=== PATIENT | male | born 1980 | race Caucasian/White ===

== ENCOUNTER 2017-05-09 21:09 | Inpatient (IN) | payer MEDICAID ==
[2017-05-09] MEDS ORDERED: Vancomycin(*) 1,000 MG in NS 0.9% 250 ML* 250 ML IVPB ONE (23:03)
[2017-05-09] MEDS ORDERED: NS 0.9% 1000 ML* 2,000 ML IV ONE (23:04)
[2017-05-09] MEDS ORDERED: Acetaminophen TAB* 325 MG PO ONE (23:04)
[2017-05-09 23:15] LABS: ABS Basophils 0 10^3/ul (0-0.2); ABS Eosinophils 0 10^3/ul (0-0.6); ABS Lymphocytes 0.6 10^3/ul (1.0-4.8); ABS Monocytes 0.4 10^3/ul (0-0.8); ABS Neutrophils 6.3 10^3/ul (1.5-7.7); ABS Nucleated RBC 0 10^3/ul; Eosinophil % 0.1 % (0-6); Hematocrit 38 % (42-52); Hemoglobin 13.1 g/dl (14.0-18.0); Lymphocyte % 8.1 % (25-47); Mean Corpuscular HGB Conc 35 g/dl (31-36); Mean Corpuscular Hemoglobin 34 pg (27-31); Mean Corpuscular Volume 99 fL (80-94); Mean Platelet Volume 8 um3 (7.4-10.4); Nucleated Red Blood Cells % 0.2; Platelet Count 154 10^3/ul (150-450); Red Blood Count 3.85 10^6/ul (4.0-5.4); Red Cell Distribution Width 14 % (10.5-15); White Blood Count 7.4 10^3/ul (3.5-10.8)
[2017-05-09 23:26] LABS: EGFR Non-African American 84.5 (>60)
[2017-05-09 23:39] LABS: INR 1.18 (0.77-1.02)
[2017-05-10] MEDS ORDERED: Ondansetron INJ* 2 MG/ML VIAL IV PRN (02:35)
[2017-05-10] MEDS ORDERED: Acetaminophen ADULT LIQ* 650 MG/20.3 ML UDC PO PRN (02:35)
[2017-05-10] MEDS ORDERED: Vancomycin per Pharmacy* NOTE FOLLOW UP SCH (03:00)
--- NOTE | 2017-05-10 04:49 | ED ---
Maninder Helms Julia, scribed for Elayne Dyson MD on 05/10/17 at 0047 . Skin Complaint - HPI Summary HPI Summary: This patient is a 36 year old M presenting to [facility] accompanied by his mother with a chief complaint of rash , erythema, swelling, and pain of the RLE since 8 :00 this morning. Mother reports fever for past few days, vomiting, and fatigue. Mother denies other symptoms. The patient rates the pain 4/10 in severity. Patient saw their PCP earlier today and was sent for further evaluation. - History of Current Complaint Chief Complaint: EDRashSkinAbscess Time Seen by Provider: 05/09/17 22:36 Stated Complaint: RT LOWER EXTREMITY SWELLING Hx Obtained From: Patient Onset/Duration: Started Hours Ago Skin Exposure Onset/Duration: Hours Ago Timing: Constant Pain Intensity: 4 Pain Scale Used: 0-10 Numeric Skin Location: Leg - R entirity Character: Swelling, Pain, Redness Associated Signs & Symptoms: Vomiting, Weakness - fatigue, Fever - Allergy/Home Medications Allergies/Adverse Reactions: Allergies Allergy/AdvReac Type Severity Reaction Status Date / Time No Known Allergies Allergy Verified 05/09/17 21:19 Home Medications: Home Medications Latanoprost 0.005%* 05/10/17 [History] Timolol 0.25% OPHTH.SOLN* 05/10/17 [History] PMH/Surg Hx/FS Hx/Imm Hx Opthamlomology History: Denies: Hx Legally Blind EENT History: Denies: Hx Deafness Infectious Disease History: No Infectious Disease History: Denies: Traveled Outside the [place] in Last 30 Days - Family History Known Family History: Positive: Cardiac Disease - Social History Lives: With Family Review of Systems Positive: Fever, Fatigue Positive: Vomiting Positive: Edema - RLE Positive: Rash - redness All Other Systems Reviewed And Are Negative: Yes Physical Exam Triage Information Reviewed: Yes Vital Signs On Initial Exam: Initial Vitals Temp Pulse Resp BP Pulse Ox 100.3 F 83 20 108/62 100 05/09/17 21:16 05/09/17 21:16 05/09/17 21:16 05/09/17 21:16 05/09/17 21:16 Vital Signs Reviewed: Yes Skin: Positive: Tender - RLE from ankle to thigh, Erythema @ - RLE from ankle to thigh Head/Face: Positive: Normal Head/Face Inspection Eyes: Positive: Normal ENT: Positive: Normal ENT inspection Respiratory/Lung Sounds: Positive: Breath Sounds Present Cardiovascular: Positive: Normal Abdomen Description: Positive: Nontender Musculoskeletal: Positive: Edema Right Neurological: Positive: Normal Diagnostics - Vital Signs Vital Signs Temp Pulse Resp BP Pulse Ox 05/09/17 21:16 100.3 F 83 20 108/62 100 - Laboratory Lab Results: Lab Results 05/09/17 05/09/17 05/09/17 Range/Units 22:43 22:43 22:43 WBC 7.4 (3.5-10.8) 10^3/ul RBC 3.85 L (4.0-5.4) 10^6/ul Hgb 13.1 L (14.0-18.0) g/dl Hct 38 L (42-52) % MCV 99 H (80-94) fL MCH 34 H (27-31) pg MCHC 35 (31-36) g/dl RDW 14 (10.5-15) % Plt Count 154 (150-450) 10^3/ul MPV 8 (7.4-10.4) um3 Neut % (Auto) 85.6 H (38-83) % Lymph % (Auto) 8.1 L (25-47) % [place] % (Auto) 6.1 (1-9) % Eos % (Auto) 0.1 (0-6) % Baso % (Auto) 0.1 (0-2) % Absolute Neuts (auto) 6.3 (1.5-7.7) 10^3/ul Absolute Lymphs (auto) 0.6 L (1.0-4.8) 10^3/ul Absolute Monos (auto) 0.4 (0-0.8) 10^3/ul Absolute Eos (auto) 0 (0-0.6) 10^3/ul Absolute Basos (auto) 0 (0-0.2) 10^3/ul Absolute Nucleated RBC 0 10^3/ul Nucleated RBC % 0.2 INR (Anticoag Therapy) 1.18 H (0.77-1.02) APTT 32.6 (26.0-36.3) seconds Sodium 136 (133-145) mmol/L Potassium 4.1 (3.5-5.0) mmol/L Chloride 99 L (101-111) mmol/L Carbon Dioxide 30 (22-32) mmol/L Anion Gap 7 (2-11) mmol/L BUN 20 (6-24) mg/dL Creatinine 1.00 (0.67-1.17) mg/dL Est GFR ( Amer) 108.7 (>60) Est GFR (Non-Af Amer) 84.5 (>60) BUN/Creatinine Ratio 20.0 (8-20) Glucose 112 H (70-100) mg/dL Lactic Acid (0.5-2.0) mmol/L Calcium 9.4 (8.6-10.3) mg/dL Total Bilirubin 0.70 (0.2-1.0) mg/dL AST 18 (13-39) U/L ALT 16 (7-52) U/L Alkaline Phosphatase 47 (34-104) U/L C-Reactive Protein 189.43 H (< 5.00) mg/L Total Protein 7.2 (6.4-8.9) g/dL Albumin 3.8 (3.2-5.2) g/dL Globulin 3.4 (2-4) g/dL Albumin/Globulin Ratio 1.1 (1-3) 05/09/17 Range/Units 22:43 WBC (3.5-10.8) 10^3/ul RBC (4.0-5.4) 10^6/ul Hgb (14.0-18.0) g/dl Hct (42-52) % MCV (80-94) fL MCH (27-31) pg MCHC (31-36) g/dl RDW (10.5-15) % Plt Count (150-450) 10^3/ul MPV (7.4-10.4) um3 Neut % (Auto) (38-83) % Lymph % (Auto) (25-47) % [place] % (Auto) (1-9) % Eos % (Auto) (0-6) % Baso % (Auto) (0-2) % Absolute Neuts (auto) (1.5-7.7) 10^3/ul Absolute Lymphs (auto) (1.0-4.8) 10^3/ul Absolute Monos (auto) (0-0.8) 10^3/ul Absolute Eos (auto) (0-0.6) 10^3/ul Absolute Basos (auto) (0-0.2) 10^3/ul Absolute Nucleated RBC 10^3/ul Nucleated RBC % INR (Anticoag Therapy) (0.77-1.02) APTT (26.0-36.3) seconds Sodium (133-145) mmol/L Potassium (3.5-5.0) mmol/L Chloride (101-111) mmol/L Carbon Dioxide (22-32) mmol/L Anion Gap (2-11) mmol/L BUN (6-24) mg/dL Creatinine (0.67-1.17) mg/dL Est GFR ( Amer) (>60) Est GFR (Non-Af Amer) (>60) BUN/Creatinine Ratio (8-20) Glucose (70-100) mg/dL Lactic Acid 0.8 (0.5-2.0) mmol/L Calcium (8.6-10.3) mg/dL Total Bilirubin (0.2-1.0) mg/dL AST (13-39) U/L ALT (7-52) U/L Alkaline Phosphatase (34-104) U/L C-Reactive Protein (< 5.00) mg/L Total Protein (6.4-8.9) g/dL Albumin (3.2-5.2) g/dL Globulin (2-4) g/dL Albumin/Globulin Ratio (1-3) Result Diagrams: 05/09/17 22:43 05/09/17 22:43 Lab Statement: Any lab studies that have been ordered have been reviewed, and results considered in the medical decision making process. - Additional Comments Diagnostic Additional Comments: Venous US of the RLE reveals no DVT. ED Physician has reviewed this report. Course/Dx - Course Course Of Treatment: Patient presents with rash , erythema, swelling, and pain of the RLE since 8:00 this morning. Mother reports fever for past few days, vomiting, and fatigue. Blood work reveal Neutrophils of 85.6% at absolute of 6.3. Absolute lymphocytes of 0.6. Dr. Tovar agreed to admit at 23:55. Patient was given IV fluids, Tylenol, Vancomycin, Zofran, and Protonix. - Diagnoses Provider Diagnoses: Cellulitis - Physician Notifications Discussed Care Of Patient With: Paul Brooks - hospitalist Instructed by Provider To: Admit As Inpatient - at 23:55 Discharge - Discharge Plan Condition: Stable Disposition: ADMITTED TO [facility] The documentation as recorded by the Maninder alves Julia accurately reflects the service I personally performed and the decisions made by me, Elayne Dyson MD.
[2017-05-10] MEDS: ceFAZolin 1 GM VIAL(*) 1 GM in D5W 50 ML BAG* 50 ML IVPB SCH ×3 (05:07→20:23)
[2017-05-10] MEDS: NS 0.9% 1000 ML* 1,000 ML IV SCH ×2 (05:09→15:55)
--- NOTE | 2017-05-10 05:22 | HP ---
H&P (Free Text) History and Physical: PCP: Hira Sung MD Date/Time: 05/10/2017 0145 CC: fever, rash HPI: Mr Roberts is a very pleasant 36YO male HX trisomy 21 & autistic spectrum disorder presents with his mother with whom he lives. She reports onset of fever and headache on Monday which is very unusual as he typically does not report pain. He has since been fatigued/sleeping more with decreased appetite and loose stools without bloody or black content. There has been no change in urinary pattern. Over the last 24-36 hours he has developed an angry red RLE rash with chela-medial streaking to the mid-thigh associated with swelling. PMedHx trisomy 21 autistic spectrum disorder legally blind deaf AD, hard of hearing with a hearing aide partial plate for dentition baseline low blood pressure & fainting PSurgHx R mastoidectomy at age 15 eustachian tubes SocHx: no tobacco, alcohol, or recreational drugs; lives with his mother; able to dress himself, independent feeding & urination, requires assistance cleaning after defecation, cannot eat firm foods such as raw vegetable/nuts; full code status FamHx: Mother: healthy; Father: CAD/stent; Sister: hypothyroidism; paternal GF: CAD ROS: as above, otherwise reviewed and all were negative vitals: Vital Signs Temp 37.0 C 05/10/17 04:32 Pulse 90 05/10/17 04:32 Resp 18 05/10/17 04:32 BP 91/63 05/10/17 04:32 Pulse Ox 98 05/10/17 04:32 Intake & Output 05/09/17 05/09/17 05/10/17 11:59 23:59 11:59 Intake Total 2250 Balance 2250 Weight 51.256 kg Intake: IV Fluids 2250 Constitutional: NAD, normally developed, well-nourished white male HEENM: atraumatic; sclera/conjunctiva: anicteric/mildly injected; hearing: deaf AD, markedly hard of hearing wearing an aide; oropharynx: clear, mucosa moist Neck: soft tissue: no nuchal rigidity; thyroid: normal Pulmonary: clear to auscultation bilaterally, good aeration, no accessory muscle use CV: RR/RR, normal S1S2, no carotid bruit, no jugular venous distention, 2+ B DP/ PT, 2+ RLE edema Abdominal: soft, non-distended, non-tender, no rebound/guarding/rigidity, normoactive bowel sounds, no hepatosplenomegaly or masses, no costovertebral angle tenderness Musculoskeletal: general: grossly intact, tender RLE Integumental: distal 1/3 RLE with angry red papular patches and erythema streaking chela-medial to the mid-thigh associated with significant swelling and shiny skin Lymph: no palpable LAD or tenderness in R groin Psychiatric orientation: somnolent, answers to name affect: calm mood: pleasant, smiling eye contact: poor (legally blind) content: very limited responses: appropriate for situation insight: poor at baseline Testing: Lab Results 05/09/17 05/09/17 05/09/17 Range/Units 22:43 22:43 22:43 WBC 7.4 (3.5-10.8) 10^3/ul RBC 3.85 L (4.0-5.4) 10^6/ul Hgb 13.1 L (14.0-18.0) g/dl Hct 38 L (42-52) % MCV 99 H (80-94) fL MCH 34 H (27-31) pg MCHC 35 (31-36) g/dl RDW 14 (10.5-15) % Plt Count 154 (150-450) 10^3/ul MPV 8 (7.4-10.4) um3 Neut % (Auto) 85.6 H (38-83) % Lymph % (Auto) 8.1 L (25-47) % [place] % (Auto) 6.1 (1-9) % Eos % (Auto) 0.1 (0-6) % Baso % (Auto) 0.1 (0-2) % Absolute Neuts (auto) 6.3 (1.5-7.7) 10^3/ul Absolute Lymphs (auto) 0.6 L (1.0-4.8) 10^3/ul Absolute Monos (auto) 0.4 (0-0.8) 10^3/ul Absolute Eos (auto) 0 (0-0.6) 10^3/ul Absolute Basos (auto) 0 (0-0.2) 10^3/ul Absolute Nucleated RBC 0 10^3/ul Nucleated RBC % 0.2 INR (Anticoag Therapy) 1.18 H (0.77-1.02) APTT 32.6 (26.0-36.3) seconds Sodium 136 (133-145) mmol/L Potassium 4.1 (3.5-5.0) mmol/L Chloride 99 L (101-111) mmol/L Carbon Dioxide 30 (22-32) mmol/L Anion Gap 7 (2-11) mmol/L BUN 20 (6-24) mg/dL Creatinine 1.00 (0.67-1.17) mg/dL Est GFR ( Amer) 108.7 (>60) Est GFR (Non-Af Amer) 84.5 (>60) BUN/Creatinine Ratio 20.0 (8-20) Glucose 112 H (70-100) mg/dL Lactic Acid (0.5-2.0) mmol/L Calcium 9.4 (8.6-10.3) mg/dL Total Bilirubin 0.70 (0.2-1.0) mg/dL AST 18 (13-39) U/L ALT 16 (7-52) U/L Alkaline Phosphatase 47 (34-104) U/L C-Reactive Protein 189.43 H (< 5.00) mg/L Total Protein 7.2 (6.4-8.9) g/dL Albumin 3.8 (3.2-5.2) g/dL Globulin 3.4 (2-4) g/dL Albumin/Globulin Ratio 1.1 (1-3) 05/09/17 Range/Units 22:43 WBC (3.5-10.8) 10^3/ul RBC (4.0-5.4) 10^6/ul Hgb (14.0-18.0) g/dl Hct (42-52) % MCV (80-94) fL MCH (27-31) pg MCHC (31-36) g/dl RDW (10.5-15) % Plt Count (150-450) 10^3/ul MPV (7.4-10.4) um3 Neut % (Auto) (38-83) % Lymph % (Auto) (25-47) % [place] % (Auto) (1-9) % Eos % (Auto) (0-6) % Baso % (Auto) (0-2) % Absolute Neuts (auto) (1.5-7.7) 10^3/ul Absolute Lymphs (auto) (1.0-4.8) 10^3/ul Absolute Monos (auto) (0-0.8) 10^3/ul Absolute Eos (auto) (0-0.6) 10^3/ul Absolute Basos (auto) (0-0.2) 10^3/ul Absolute Nucleated RBC 10^3/ul Nucleated RBC % INR (Anticoag Therapy) (0.77-1.02) APTT (26.0-36.3) seconds Sodium (133-145) mmol/L Potassium (3.5-5.0) mmol/L Chloride (101-111) mmol/L Carbon Dioxide (22-32) mmol/L Anion Gap (2-11) mmol/L BUN (6-24) mg/dL Creatinine (0.67-1.17) mg/dL Est GFR ( Amer) (>60) Est GFR (Non-Af Amer) (>60) BUN/Creatinine Ratio (8-20) Glucose (70-100) mg/dL Lactic Acid 0.8 (0.5-2.0) mmol/L Calcium (8.6-10.3) mg/dL Total Bilirubin (0.2-1.0) mg/dL AST (13-39) U/L ALT (7-52) U/L Alkaline Phosphatase (34-104) U/L C-Reactive Protein (< 5.00) mg/L Total Protein (6.4-8.9) g/dL Albumin (3.2-5.2) g/dL Globulin (2-4) g/dL Albumin/Globulin Ratio (1-3) US RLE DVT: IMPRESSION: No DVT Impression: 36M HX trisomy 21, autistic spectrum disorder, markedly hard of hearing, legally blind presents with non-septic cellulitis of the RLE DIAGNOSIS & PLAN Primary non-septic cellulitis of RLE : IV vancomycin & cefazolin : IVFs : blood CX : supportive care Secondary trisomy 21 : no acute issues autistic spectrum disorder : no acute issues hard of hearing : continue aide : courteous awareness legally blind : courteous awareness Admission Rational: observation for initiation of IV ABX DVTp: low risk, ambulation Code Status: full HCP: mother
[2017-05-10] MEDS: Timolol 0.25% OPHTH.SOLN* BTL BOTH EYES SCH (07:34)
--- NOTE | 2017-05-10 07:38 | RAD ---
INDICATION: Pain and swelling. COMPARISON: None TECHNIQUE: Duplex interrogation of the Lowerextremity was performed. FINDINGS: Deep veins: The common femoral, great saphenous, profunda femoris, proximal, mid, and distal deep femoral, popliteal, posterior tibial, and peroneal veins are patent. There is normal compressibility, augmentation, and phasic flow. Superficial veins: There are no findings of superficial thrombophlebitis. Popliteal fossa:There is no evidence of a popliteal cyst. Soft tissues:There is soft tissue edema with presumed reactive lymph nodes and inguinal region. IMPRESSION: NO EVIDENCE OF DEEP VENOUS THROMBOSIS. PRESUMED REACTIVE LYMPH NODES IN THE INGUINAL REGION.
[2017-05-10] MEDS: Pantoprazole IV* 40 MG IV SCH (08:17)
[2017-05-10 10:02] LABS: Urine Appearance Clear; Urine Blood 1+ (Negative); Urine Color Yellow; Urine Ketones Negative (Negative); Urine Protein Negative (Negative); Urine Specific Gravity 1.013 (1.010-1.030); Urine Urobilinogen Negative (Negative)
[2017-05-10] MEDS ORDERED: Vancomycin(*) 1,000 MG in NS 0.9% 250 ML* 250 ML IVPB SCH (12:00)
--- NOTE | 2017-05-10 18:06 | PN ---
Hospitalist Progress Note Date of Service: 05/10/17 Quick f/u eval after admission today. Antibiotics adjusted, vancomycin DC'd, continue ancef IV Q8H. Follow blood cultures, trend temps, Patient meets inpatient criteria. Orders adjusted. Discussed with patient's father.
[2017-05-10] MEDS ORDERED: Latanoprost 0.005%* 2.5 ml BTL BOTH EYES SCH (21:00)
[2017-05-10] MEDS: Nystatin CREAM* 15 GM TUBE TOPICAL SCH (23:36)
[2017-05-11] MEDS: NS 0.9% 1000 ML* 1,000 ML IV SCH ×2 (00:54→09:10)
[2017-05-11] MEDS: ceFAZolin 1 GM VIAL(*) 1 GM in D5W 50 ML BAG* 50 ML IVPB SCH ×2 (03:19→11:18)
[2017-05-11] MEDS: Pantoprazole IV* 40 MG IV SCH (08:58)
[2017-05-11] MEDS: Nystatin CREAM* 15 GM TUBE TOPICAL SCH (08:58)
[2017-05-11] MEDS: Timolol 0.25% OPHTH.SOLN* BTL BOTH EYES SCH (08:59)
[2017-05-11 09:06] VITALS: BP 99/58
[2017-05-11] MEDS ORDERED: Vancomycin Trough Check NOTE FOLLOW UP ONE (11:30)
--- NOTE | 2017-05-13 14:34 | DS ---
CC: Alberto Sung MD * DISCHARGE SUMMARY: DATE OF ADMISSION: 05/10/17 DATE OF DISCHARGE: 05/11/17 PRIMARY CARE PROVIDER: Alberto Sung MD. MY ATTENDING PHYSICIAN WHILE IN THE HOSPITAL: Gilma Chery DO.* (DICTATED BY LARRY RILEY) PRIMARY DISCHARGE DIAGNOSIS: Right lower leg cellulitis. SECONDARY DISCHARGE DIAGNOSES: 1. Trisomy 21. 2. Autism spectrum disorder. 3. Blindness. 4. Deafness. 5. Hypotension. STUDIES DONE WHILE IN THE HOSPITAL: Doppler study from 04/29/17 read as no evidence of deep vein thrombus, presumably reactive lymph nodes in the inguinal region. MEDICATIONS AT DISCHARGE: 1. Timolol 0.25% ophthalmic solution 2 drops both eyes daily. 2. Latanoprost 2 drops both eyes daily. 3. Tylenol liquid 600 mg p.o. q. 6 hours as needed. 4. Keflex suspension 250 mg/5 mL, 500 mg p.o. q.i.d. x 7 days. New medications at discharge: 1. Tylenol. 2. Keflex. Medications discontinued at discharge: None. HOSPITAL COURSE: This is a brief summary of the patient's presentation. For more details, please see the history and physical from Dr. Paul Brooks, on 05/10/17. In brief, the patient is a 36-year-old male with a past medical history significant for the above, who presents after he had several days of fever and headache as well as fatigue and increased lethargy as well as decreased appetite and loose stools, followed by a red rash on his right lower extremity with streaking and swelling. The patient went to his primary care doctor and was sent to the hospital for evaluation. The patient was diagnosed with cellulitis of the right lower extremity, started on vancomycin and Kefzol as well has been given IV fluids and having blood cultures drawn. The patient did not have lactic acidosis. The patient had elevated CRP. The patient had no other significant abnormalities. The patient's white blood cell count was normal. The patient improved greatly overnight from 05/10/17 to 05/11/17. The vancomycin was discontinued. The patient continued with pain but stated this was decreased; however, the patient is a poor historian. The patient was avoiding putting pressure on that leg; for an unknown reason patient had increased swelling in his legs after being positive approximately 6 L while in the hospital. The patient otherwise had no complaints and was very pleasant. The patient had a temperature of 103.3 on admission, but the only other temperature elevation was a temperature of 99 on 05/10/17 in the evening. The patient had consistently low blood pressure but the patient has a history of this. The patient had no other complaints and the patient's family was in agreement for him to be discharged to home with IV antibiotics given his improvement while in this hospital. PHYSICAL EXAMINATION ON DAY OF DISCHARGE: General: The patient is a 36-year- old male, with the physical characteristics of trisomy 21, who appears younger than stated age and is sitting comfortably in bed, in no acute distress. Vital Signs: Temperature 98.2, pulse rate 74, respiratory rate 18, oxygen saturation 100% on room air, blood pressure 99/58. HEENT: Head normocephalic, atraumatic. Sclerae anicteric. No conjunctival injection, Nasal mucosa moist. Oral mucosa moist. No pharyngeal erythema, exudate, or discharge. Neck : Supple, nontender. No lymphadenopathy, no carotid bruits auscultated. Cardiac: Regular rate and rhythm. No clicks, murmurs, gallops, or rubs. Pulses 2+ in bilateral dorsalis pedis, posterior tibialis, and radial areas. Respiratory: Clear to auscultation bilaterally. No wheezes, rales, or rhonchi. Abdomen: Soft, nontender, nondistended. Bowel sounds present. Normoactive in all 4 quadrants. No hepatosplenomegaly. Skin: Clean, dry, and intact. There is a significant erythema without exudates or purulence on the right lower extremity without significant swelling in the right lower extremity. There is no significant receding of the erythema from the line drawn around it to indicate its position on the day of discharge. No other rash. Neuro: Cranial nerves II through XII intact. The patient has mild esotropia. The patient has decreased visual acuity and hearing. The patient has no focal deficits. Psychiatric: The patient is cooperative. The patient has developmental delay. LABORATORY DATA ON DAY OF DISCHARGE: Not available. Other pertinent laboratory analyses from hospitalization, white blood cell count 7.4, hemoglobin 13.1. Neutrophil percent 85.6, INR 1.18. Sodium 136, potassium 4.1 , chloride 99, carbon dioxide 30, anion gap 7, BUN 20, creatinine 1.0, glucose 112, lactic acid 0.8. CRP 189. Urine shows 1+ blood, 2+ red blood cells and squamous epithelial cells. DISCHARGE PLAN: The patient will be discharged to home with a presumptive diagnosis of streptococcal cellulitis, nonsuppurative, sensitive to first generation cephalosporin. To be continued on Keflex q.i.d. The patient will have an extended course for a total of 9 days of antibiotics due to his relative immunosuppression related to his trisomy 21. The patient will follow up with his primary care doctor within 1 week to document continued improvement of his rash. The patient should return to the hospital for any serious worsening in his rash, any evidence of an allergic reaction, any chest pain, shortness of breath or other alarming symptoms. The patient can continue with activity as tolerated. Avoiding pain from stepping on his left leg. The patient should have a regular unrestricted diet. TIME SPENT: Approximately 60 minutes was spent on this discharge, 30 of which was spent [id number] with the patient and the family obtaining history and physical and discussing treatment plan. LARRY RILEY [id number]/[facility] #: [id number] [place]
== END 2017-05-11 12:39 | disposition home or self-care (01) | DRG 383 ==
LOC: ED 21:09 → MEDTELE 05-10 01:49 → OBSVTOIN 05-10 15:31
PROVIDERS: ADMIT Hospitalist; ATTEND Hospitalist
DX: L03.115 Cellulitis of right lower limb (principal); I95.9 Hypotension, unspecified; F84.0 Autistic disorder; H50.00 Unspecified esotropia; H91.90 Unspecified hearing loss, unspecified ear; B95.5 Unspecified streptococcus as the cause of diseases classified elsewhere; H54.8 Legal blindness, as defined in USA; Q90.9 Down syndrome, unspecified; Z97.4 Presence of external hearing-aid; Z82.49 Family history of ischemic heart disease and other diseases of the circulatory system; Z83.49 Family history of other endocrine, nutritional and metabolic diseases
CPT/HCPCS: 36415; 80053; 81003; 81015; 83605; 85025; 85610; 85730; 86140; 87040; 99285; A9270-GY; G0378; J0690; J3370